=== PATIENT | female | born 1955 | race American Indian/Alaskan Native ===

== ENCOUNTER 2017-05-04 13:17 | Outpatient (CLI) | payer OTHER ==
--- NOTE | 2017-05-04 14:08 | Mammography Report ---
BILATERAL MAMMOGRAM: FINDINGS: The breast tissue is heterogeneously dense, which could obscure detection of small masses (approximately 50%-75% glandular). No mass, distortion, suspicious calcification, or skin change is seen. No significant change compared to prior exam in March 2016. CAD was utilized. IMPRESSION: Negative mammogram. There is no mammographic evidence of malignancy. RECOMMENDATION: Follow-up per ACS guidelines. BI-RADS CATEGORY: 1 = Negative ACR BI-RADS MAMMOGRAPHIC CODES: 0 = Needs additional imaging evaluation; 1 = Negative; 2 = Benign; 3 = Probably benign; 4 = Suspicious; 5 = Malignant; 6 = Known biopsy-proven malignancy COMMENT: 1. Dense breast tissue, i.e., adenosis, fibrocystic changes, etc., may obscure an underlying neoplasm. 2. Approximately 10% of cancers are not detected with mammography. 3. A negative mammography report should not delay biopsy if a clinically suspicious mass is present. COMMENT: Patient follow-up letters are generated in [employer].
== END 2017-05-04 13:18 | disposition home or self-care (01) ==
LOC: MAMMO 13:17
PROVIDERS: ATTEND Family Medicine
DX: Z12.31 Encounter for screening mammogram for malignant neoplasm of breast (principal)
CPT/HCPCS: 77067

== ENCOUNTER 2018-09-14 08:54 | Outpatient (CLI) | payer MEDICARE, OTHER ==
--- NOTE | 2018-09-14 10:18 | Ultrasound Report ---
THYROID ULTRASOUND: INDICATION: Thyroid enlargement. COMPARISON: None similar. FINDINGS: Longitudinal and transverse grayscale and color flow sonographic evaluation of the thyroid demonstrates normal vascularity. Isthmus prominent/thickened to 1.1 cm AP with an approximately 1.9 x 0.9 x 1.7 cm solid nodule on the left as on images 4-6. Right thyroid lobe slightly heterogeneous and measures 5.8 x 2.8 x 2.3 cm. Left thyroid lobe also slightly heterogeneous and estimated at 5.5 x 2.9 x 2.6 cm. A 1.2 x 0.8 x 1.1 cm slightly heterogeneous solid nodule in its mid aspect also seen, image 24. CONCLUSION: Slightly lobulated, heterogeneous thyroid with few small nodules noted bilaterally, as detailed above. Please also correlate clinically and with laboratory values. Thank you for the opportunity to participate in this patient's care.
--- NOTE | 2018-09-14 12:32 | Mammography Report ---
BILATERAL DIGITAL SCREENING MAMMOGRAM with CAD: 09/14/18 08:54:00 CLINICAL: Routine screening. COMPARISON:05/04/17 and 03/22/16 FINDINGS: The breasts are heterogeneously dense, which may obscure small masses. Bilateral asymmetries require additional imaging.No architectural distortion or suspicious calcifications. IMPRESSION: Bilateral asymmetries requiring further workup. BI-RADS CATEGORY: 0 -- Additional Imaging Evaluation Required RECOMMENDATION: Recall for bilateral and spot compression views and bilateral breast ultrasound if needed. COMMENT: 1. Dense breast tissue, i.e., adenosis, fibrocystic changes, etc., may obscure an underlying neoplasm. 2. Approximately 10% of cancers are not detected with mammography. 3. A negative mammography report should not delay biopsy if a clinically suspicious mass is present. COMMENT: Patient follow-up letters are generated via our [employer] application.
== END 2018-09-14 08:55 | disposition home or self-care (01) ==
LOC: MAMMO 08:54
PROVIDERS: ATTEND Family Medicine
DX: Z12.31 Encounter for screening mammogram for malignant neoplasm of breast (principal); E04.9 Nontoxic goiter, unspecified; E78.00 Pure hypercholesterolemia, unspecified
CPT/HCPCS: 76536; 77067

== ENCOUNTER 2018-09-25 12:38 | Outpatient (CLI) | payer MEDICARE, OTHER ==
--- NOTE | 2018-09-25 13:31 | Mammography Report ---
Bilateral mammogram: Call back for bilateral breast asymmetries. Multiple projections and CC and lateral views of each breast were obtained. Single asymmetries were identified in each breast which appear to efface on the additional views. Comparison to made to prior exams dating back to 2014. No significant changes are identified when compared to multiple prior exams. Impressions: Stable exam. Recommendations: Annual mammogram followup. BI-RADS CATEGORY: 1 = Negative ACR BI-RADS MAMMOGRAPHIC CODES: 0 = Needs additional imaging evaluation; 1 = Negative; 2 = Benign; 3 = Probably benign; 4 = Suspicious; 5 = Malignant; 6 = Known biopsy-proven malignancy COMMENT: 1. Dense breast tissue, i.e., adenosis, fibrocystic changes, etc., may obscure an underlying neoplasm. 2. Approximately 10% of cancers are not detected with mammography. 3. A negative mammography report should not delay biopsy if a clinically suspicious mass is present.
== END 2018-09-25 12:39 | disposition home or self-care (01) ==
LOC: MAMMO 12:38
PROVIDERS: ATTEND Family Medicine
DX: R92.8 Other abnormal and inconclusive findings on diagnostic imaging of breast (principal); E78.00 Pure hypercholesterolemia, unspecified
CPT/HCPCS: 77066

== ENCOUNTER 2019-09-12 07:08 | Outpatient (CLI) | payer MEDICARE, OTHER ==
--- NOTE | 2019-09-12 09:13 | Mammography Report ---
BILATERAL DIGITAL DIAGNOSTIC MAMMOGRAM WITH CAD WITHOUT TOMOSYNTHESIS 09/12/2019 BILATERAL LIMITED BREAST ULTRASOUND INDICATION: Left axillary palpable abnormality for one and half months TECHNIQUE: Digital bilateral mammographic imaging was performed. Limited ultrasound was performed. T his examination was interpreted with the benefit of Computer-Aided Detection (CAD) analysis. COMPARISON: Bilateral mammography 09/14/2018 and priors Breast Density: The breasts are heterogeneously dense, which may obscure small masses. FINDINGS: MAMMOGRAPHIC FINDINGS: No significant breast lesions are seen. However, bilaterally enlarged multiple axillary lymph nodes are seen which are more prominent than on prior studies. ULTRASOUND FINDINGS: Targeted ultrasound evaluation was performed of the area of interest. Sonography of both axillae show multiple bilateral abnormal lymph nodes correlating with the mammographic findi ngs and the left palpable abnormality. Largest individual node on the left has a short axis diameter of 3.5 cm. None of the nodes in the left have a normal appearance none showing fatty flower. Internal v ascularity is noted. On the right there is one node with a fatty hilum but with a thickened cortex an d other nodes have a little if any internal fat. Largest node on the right has a short axis diameter of 2.5 cm. IMPRESSION: Bilateral axillary lymphadenopathy with abnormal appearance to the nodes in both areas. N o breast abnormalities are seen. Findings are of significant concern for process such as lymphoma. CT of the chest, abdomen, and pelvis and or PET/CT may be useful to determine if other adenopathy is pr esent. Clinical correlation is also suggested. Ultimately biopsy of a node at some location likely wi ll be necessary. Follow up recommendation: As above BI-RADS Category 4: Suspicious for Malignancy. A "normal" or negative report should not discourage follow up or biopsy of a clinically significant f inding. A written summary of these findings will be mailed to the patient. The patient will be entered into a mammography reporting system which will generate a reminder letter for the patient's next appointmen t at the appropriate interval. According to the [employer], yearly mammograms are recommended starting at age 40 and continuing as long as a woman is in good health. Breast MRI is recommended for women with an nikolas roximately 20-25% or greater lifetime risk of breast cancer, including women with a strong family his tory of breast or ovarian cancer and women who have been treated for Hodgkin's disease. Signer Name: Alexandru Smith MD Signed: 09/12/2019 9:09 AM Workstation Name: [id number]
== END 2019-09-12 07:09 | disposition home or self-care (01) ==
LOC: US 07:08
PROVIDERS: ATTEND Family Medicine
DX: N64.89 Other specified disorders of breast (principal); R22.32 Localized swelling, mass and lump, left upper limb
CPT/HCPCS: 77066

== ENCOUNTER 2019-10-09 15:12 | Outpatient (CLI) | payer MEDICARE, OTHER ==
--- NOTE | 2019-10-10 14:23 | Ultrasound Report ---
Procedure: Ultrasound-guided left axillary lymph node biopsy, 10/09/2019 Clinical information/indication: Enlarged bilateral axillary lymph nodes. Left axillary mass. Comparison: Diagnostic mammogram and ultrasound, 09/12/2019 Procedure: The benefits, indications and risks were discussed with the patient including but not limi jass to bleeding, infection, hematoma formation, and inadequate tissue sampling. The patient agreed to proceed with both verbal and written consent. A timeout procedure was performed using 2 patient iden tifiers. The left axilla was prepped and draped in the usual sterile fashion. Lidocaine with and without epine phrine were used for local anesthesia. Under direct ultrasound guidance, a total of 6 core samples we re obtained with an 18-gauge biopsy device. A biopsy marker was then placed. Biopsy device was remove d and hemostasis achieved with manual pressure. A sterile dressing was applied to the skin. The patient tolerated the procedure without difficulty. No complications were encountered. Specimens were sent to pathology. A sample was also reserved for flow cytometry evaluation. IMPRESSION: 1. Technically successful left axillary lymph node biopsy. Signer Name: Katia Starkey MD Signed: 10/10/2019 2:18 PM Workstation Name: [id number]
== END 2019-10-09 15:13 | disposition home or self-care (01) ==
LOC: SPVWC 15:12
PROVIDERS: ATTEND Family Medicine
DX: R59.9 Enlarged lymph nodes, unspecified (principal); E78.00 Pure hypercholesterolemia, unspecified
CPT/HCPCS: 38505; 76942; 88305

== ENCOUNTER 2019-10-21 10:05 | Outpatient (CLI) | payer MEDICARE, OTHER ==
[2019-10-21 11:16] LABS: Blood Urea Nitrogen 9 mg/dL (7-17)
--- NOTE | 2019-10-21 14:33 | Cat Scan Report ---
CT CHEST, ABDOMEN, AND PELVIS WITHOUT CONTRAST INDICATION: Lymphadenopathy, recent history of left axillary lymph node biopsy CONTRAST: Without IV COMPARISON: None available. All CT scans at this location are performed using CT dose reduction for ALARA by means of automated e xposure control. FINDINGS: No significant focal bony lesions are seen. No obvious endobronchial lesions are noted. No pneumothorax or pneumomediastinum are seen. No pleural effusions are noted. No significant pulmonary infiltrates are seen. A tiny peripheral 1 mm left lower lobe nodule laterally is of doubtful signific ance but no other nodularity is seen. No pulmonary masses are noted. Small hiatal hernia is seen. Both lobes of thyroid are mildly prominent and heterogenous with possible nodularity though this is i ll-defined. Prominent bilateral axillary lymphadenopathy is seen. Largest node on the left has a short axis diame ter of 5 cm and the largest node on the right has a short axis diameter of 2.5 cm. Adenopathy is seen in the lower neck and supraclavicular regions is moderately prominent. Largest lower neck node is ju st lateral to the left lobe of the thyroid measuring 2.4 cm in short axis diameter. I do not see obvi ous mediastinal lymphadenopathy however with ileus be small nodes seen. No hilar masses are noted. Ca lcified nodes are seen at the base of the right hilum and in the right hilum. No pneumoperitoneum is seen. No significant abdominal wall herniation is noted though there is mild m idline laxity. No free fluid is seen. No urinary tract calculi or evidence of obstruction are noted. Calcifications in the lower pelvis appear to be extra ureteral and vascular. See no obvious abnormali ties of the kidneys, pancreas, adrenals, gallbladder, or bile ducts. No focal inflammatory changes ar e seen. No evidence of bowel obstruction is noted. The liver shows mild fatty infiltration and is enlarged with a length of 20.2 cm. No focal masses are obvious. Spleen is not enlarged. Moderate retroperitoneal lymphadenopathy is seen with multiple nodes, particularly in the para-aortic and paracaval areas. Largest retroperitoneal node is on the right measuring 4 cm in short axis diame ter. Adenopathy is also noted in the mesentery, particularly centrally, with the largest node just to the right of midline having a short axis diameter of 15 mm. Adenopathy is seen in the gastrohepatic ligament measuring up to short axis diameter of 14 mm and periportal adenopathy is also seen to a mil d degree. The retroperitoneal adenopathy continues into the pelvis bilaterally in multiple areas exte nding through the common iliac, external iliac, and internal iliac distributions bilaterally. Largest pelvic node on the left is in the external iliac region distally with a short axis diameter of 2.5 c m and the largest pelvic node on the right is in the internal iliac distribution in the obturator reg ion measuring short axis diameter 2.6 cm. IMPRESSION: Widespread lymphadenopathy is seen in the chest, abdomen, and pelvis as above most consis tent with lymphoma Signer Name: Alexandru Smith MD Signed: 10/21/2019 2:29 PM Workstation Name: [id number]
== END 2019-10-21 10:06 | disposition home or self-care (01) ==
LOC: CT 10:05
PROVIDERS: ATTEND Internal Medicine Hematology & Oncology
DX: K76.0 Fatty (change of) liver, not elsewhere classified (principal); K44.9 Diaphragmatic hernia without obstruction or gangrene; R91.1 Solitary pulmonary nodule; M25.859 Other specified joint disorders, unspecified hip; R59.0 Localized enlarged lymph nodes
CPT/HCPCS: 36415; 71250; 74150; 82565; 84520

== ENCOUNTER 2019-12-04 13:36 | Outpatient (CLI) | payer MEDICARE, OTHER ==
--- NOTE | 2019-12-04 15:22 | Mammography Report ---
DEXA BONE DENSITY SCAN INDICATION: LOCALIZED OSTEOPOROSIS. COMPARISON: None available. LUMBAR SPINE (L1-L4): Bone mineral density (BMD) is 1.077 g/cm2. T-score is 0.3 (standard deviations of Young Adult mean). Z-score is 1.4 (standard deviations of Age Matched mean). LEFT FEMORAL NECK: Bone mineral density (BMD) is 0.779 g/cm2. T-score is -0.6 (standard deviations of Young Adult mean). Z-score is 0.1 (standard deviations of Age Matched mean). IMPRESSION: 1. WHO Classification: Normal bone density. Fracture Risk: Not Increased. Signer Name: Ken Santiago MD Signed: 12/04/2019 3:17 PM Workstation Name: [id number]
--- NOTE | 2019-12-04 17:45 | Ultrasound Report ---
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 COMPARISON: Thyroid ultrasound on 09/14/2018 FINDINGS: Right Lobe: Size: 5.3 x 3.0 x 2.0 cm. Echogenicity: Normal. Left Lobe: Size: 5.5 x 3.8 x 2.6 cm. Echogenicity: Normal. Isthmus: Normal Nodules: There is a 1.1 cm solid nodule in the right upper pole that is isoechoic and well-defined. TI RADS 3 There is a 1.1 cm solid nodule in the right upper pole that is well-defined, ovoid, and solid. TI RAD S 3 There is a 1.2 cm poorly defined slightly hypoechoic nodule in the lateral left lobe. TI RADS 4 Lymph nodes: No abnormal lymph nodes Additional findings: None. IMPRESSION: 1. Small bilateral thyroid nodules without concerning change from prior. These can be followed sonogr aphically based on TI RADS criteria. ACR TI-RADS Recommendations TI-RADS 1 (0 points) -- Benign. No FNA or follow-up. TI-RADS 2 (1-2 points) -- Not suspicious. No FNA or follow-up. TI-RADS 3 (3 points) -- Mildly suspicious. Follow if 1.5 cm. FNA if 2.5 cm. TI-RADS 4 (4-6 points) -- Moderately suspicious. Follow if 1.0 cm. FNA if 1.5 cm. TI-RADS 5 (7+ points) -- Highly suspicious. Follow if 0.5 cm. FNA if 1.0 cm. Signer Name: Mayank Delgado MD Signed: 12/04/2019 5:40 PM Workstation Name: [id number]
== END 2019-12-04 13:37 | disposition home or self-care (01) ==
LOC: MAMMO 13:36
PROVIDERS: ATTEND Family Medicine
DX: Z13.820 Encounter for screening for osteoporosis (principal); E04.2 Nontoxic multinodular goiter; M81.6 Localized osteoporosis [Lequesne]
CPT/HCPCS: 76536; 77080

== ENCOUNTER 2019-12-16 09:37 | Outpatient (CLI) | payer MEDICARE, OTHER ==
--- NOTE | 2019-12-16 11:59 | Vascular Lab Report ---
DUPLEX DOPPLER LOWER EXTREMITY VEINS, RIGHT INDICATION: rt.leg pain. TECHNIQUE: Duplex doppler imaging was performed through the veins of the right lower extremity using venous compression and other maneuvers. COMPARISON: No relevant prior imaging study available. FINDINGS: Right Common femoral vein: Negative. Right Superficial femoral vein: Negative. Right Popliteal vein: Negative. Right Calf veins: Negative. Additional findings: None.. IMPRESSION: No sonographic evidence for DVT in the right lower extremity. Signer Name: Yaw Romero Jr, MD Signed: 12/16/2019 11:55 AM Workstation Name: [id number]
== END 2019-12-16 09:38 | disposition home or self-care (01) ==
LOC: VAS 09:37
PROVIDERS: ATTEND Internal Medicine Hematology & Oncology
DX: M79.606 Pain in leg, unspecified (principal)

== ENCOUNTER 2020-12-04 08:06 | Outpatient (CLI) | payer MEDICARE, OTHER ==
--- NOTE | 2020-12-04 11:43 | Mammography Report ---
DIGITAL SCREENING MAMMOGRAM WITH CAD, 12/04/2020 CLINICAL INFORMATION / INDICATION: Routine screening mammography. Z12.31 TECHNIQUE: Digital bilateral 2D mammography was obtained in the craniocaudal and mediolateral obliqu e projections. This examination was interpreted with the benefit of Computer-Aided Detection analysis . COMPARISON: 11/20/2013 through 09/12/2019. FINDINGS: Breast Density: The breasts are heterogeneously dense, which may obscure small masses. No dominant mass, suspicious calcifications, or architectural distortion in either breast. IMPRESSION: No mammographic evidence of malignancy. Follow up recommendation: Routine yearly BI-RADS Category 1: Negative. A "normal" or negative report should not discourage follow up or biopsy of a clinically significant f inding. A written summary of these findings will be mailed to the patient. The patient will be entered into a mammography reporting system which will generate a reminder letter for the patient's next appointmen t at the appropriate interval. The [employer] recommends yearly mammograms starting at age 40 and continuing as l ankur as a woman is in good health. Breast MRI is recommended for women with an approximate 20-25% or greater lifetime risk of breast cancer, including women with a strong family history of breast or ova netea cancer or who have been treated for Hodgkin's disease. Signer Name: Musa Michael MD Signed: 12/04/2020 11:39 AM Workstation Name: [id number]
== END 2020-12-04 08:07 | disposition home or self-care (01) ==
LOC: MAMMO 08:06
PROVIDERS: ATTEND Family Medicine
DX: Z12.31 Encounter for screening mammogram for malignant neoplasm of breast (principal)
CPT/HCPCS: 77067

== ENCOUNTER 2021-05-03 21:35 | Emergency (ER) | payer MEDICARE, OTHER ==
[2021-05-03 21:41] VITALS: BP 151/74
--- NOTE | 2021-05-03 22:57 | Emergency Department Report ---
ED Animal Bite HPI - General Chief Complaint: Animal Bite Stated Complaint: DOG BITE Source: patient Mode of arrival: Ambulatory Limitations: No Limitations - History of Present Illness Initial Comments: 66 -year-old female presents to the ED after her pet shitzu attack and bitten left side of face. She states that she was attempting to lay next to animal when the dog started to attack her . She states that she may have scared the animal and provoked the attack. She states is up-to-date on vaccination. States she is up-to-date with tetanus shot. Patient is alert and oriented x4. No acute distress noted. MD Complaint: animal bite -: This evening Location: face Animal: dog Description: household pet Mechanism: bite Pain Description: sharp Severity scale (0 -10): 5 Context: playing with animal Associated Symptoms: bleeding - Related Data Patient Tetanus UTD: Yes Previous Rx's Medication Instructions Recorded Last Taken Type Amoxicillin/Potassium Clav 1 each PO BID 10 Days #20 tab 05/03/21 Unknown Rx [Augmentin 875-125 Tablet] Allergies Allergy/AdvReac Type Severity Reaction Status Date / Time No Known Allergies Allergy Verified 05/03/21 21:42 ED Review of Systems ROS: Stated complaint: DOG BITE Other details as noted in HPI Constitutional: denies: chills, fever Eyes: denies: eye pain, eye discharge, vision change ENT: denies: ear pain, throat pain Respiratory: denies: cough, shortness of breath, wheezing Cardiovascular: denies: chest pain, palpitations Endocrine: no symptoms reported Gastrointestinal: denies: abdominal pain, nausea, diarrhea Genitourinary: denies: urgency, dysuria, discharge Musculoskeletal: denies: back pain, joint swelling, arthralgia Skin: other (Several mild abrasion from bite ). denies: rash, lesions Neurological: denies: headache, weakness, paresthesias Psychiatric: denies: anxiety, depression Hematological/Lymphatic: denies: easy bleeding, easy bruising ED Past Medical Hx - Past Medical History Additional medical history: Lymphatic Leukemia - Surgical History Additional Surgical History: c section - Medications Home Medications: Home Medications Medication Instructions Recorded Confirmed Last Taken Type Amoxicillin/Potassium Clav 1 each PO BID 10 Days #20 tab 05/03/21 Unknown Rx [Augmentin 875-125 Tablet] ED Physical Exam - General Limitations: No Limitations General appearance: alert, in no apparent distress - Head Head exam: Present: atraumatic, normocephalic - Eye Eye exam: Present: normal appearance - ENT ENT exam: Present: mucous membranes moist - Neck Neck exam: Present: normal inspection - Respiratory Respiratory exam: Present: normal lung sounds bilaterally. Absent: respiratory distress - Cardiovascular Cardiovascular Exam: Present: regular rate, normal rhythm. Absent: systolic murmur, diastolic murmur, rubs, gallop - GI/Abdominal GI/Abdominal exam: Present: soft, normal bowel sounds - Extremities Exam Extremities exam: Present: normal inspection - Back Exam Back exam: Present: normal inspection - Neurological Exam Neurological exam: Present: alert, oriented X3 - Psychiatric Psychiatric exam: Present: normal affect, normal mood - Skin Skin exam: Present: warm, dry, intact, normal color. Absent: rash ED Course Vital Signs 05/03/21 21:40 Temperature 98.3 F Pulse Rate 84 Respiratory 18 Rate Blood Pressure 151/74 O2 Sat by Pulse 100 Oximetry Critical care attestation.: If time is entered above; I have spent that time in minutes in the direct care of this critically ill patient, excluding procedure time. ED Disposition Clinical Impression: Animal bite Disposition: HOME / SELF CARE / HOMELESS Is pt being admited?: No Does the pt Need Aspirin: No Condition: Stable Instructions: Animal Bite, Adult, [id number] Additional Instructions: Keep wound clean and dry Follow-up with primary care doctor Return to ED for any worsening symptoms Take Medication has prescribed Prescriptions: Amoxicillin/Potassium Clav [Augmentin 875-125 Tablet] 1 each PO BID 10 Days #20 tab Referrals: KAYLAN JONES [Other] - 3-5 Days Time of Disposition: 23:01
== END 2021-05-03 23:07 | disposition home or self-care (01) ==
LOC: ED 21:35
DX: S01.85XA Open bite of other part of head, initial encounter (principal); C91.90 Lymphoid leukemia, unspecified not having achieved remission; Z79.899 Other long term (current) drug therapy; Z98.890 Other specified postprocedural states; W54.0XXA Bitten by dog, initial encounter; Y93.89 Activity, other specified; Y92.89 Other specified places as the place of occurrence of the external cause; Y99.8 Other external cause status
CPT/HCPCS: 99282

== ENCOUNTER 2021-12-17 10:40 | Outpatient (CLI) | payer MEDICARE, OTHER ==
--- NOTE | 2021-12-17 15:22 | Mammography Report ---
DIGITAL SCREENING MAMMOGRAM WITH CAD, 12/17/2021 CLINICAL INFORMATION / INDICATION: Routine screening mammography. SCREENING MAMMOGRAM Z12.31 TECHNIQUE: Digital bilateral 2D mammography was obtained in the craniocaudal and mediolateral obliqu e projections. This examination was interpreted with the benefit of Computer-Aided Detection analysis . COMPARISON: Prior mammogram 12/04/2020 and 09/12/2019 FINDINGS: Breast Density: The breasts are heterogeneously dense, which may obscure small masses. No dominant mass, suspicious calcifications, or architectural distortion in either breast. There has been no significant change compared with the prior examination. IMPRESSION: No mammographic evidence of malignancy. Follow up recommendation: Routine yearly screening mammogram. BI-RADS Category 1: NEGATIVE A "normal" or negative report should not discourage follow up or biopsy of a clinically significant f inding. A written summary of these findings will be mailed to the patient. The patient will be entered into a mammography reporting system which will generate a reminder letter for the patient's next appointmen t at the appropriate interval. The [employer] recommends yearly mammograms starting at age 40 and continuing as l ankur as a woman is in good health. Breast MRI is recommended for women with an approximate 20-25% or greater lifetime risk of breast cancer, including women with a strong family history of breast or ova neeta cancer or who have been treated for Hodgkin's disease. Signer Name: Felicity Browne MD Signed: 12/17/2021 3:18 PM Workstation Name: [id number]
== END 2021-12-17 10:41 | disposition home or self-care (01) ==
LOC: MAMMO 10:40
DX: Z12.31 Encounter for screening mammogram for malignant neoplasm of breast (principal)
CPT/HCPCS: 77067